=== PATIENT | female | born 1935 | race Caucasian/White ===

== ENCOUNTER 2017-12-02 13:07 | Day surgery (SDC) | payer MEDICARE, MEDICAID ==
[~2017-12-02] VITALS: Ht 152.4 cm; Wt 73.6 kg
[2017-12-02 13:17] VITALS: BP 151/67
[2017-12-02] MEDS ORDERED: MULT-1074 PO (13:28)
[2017-12-02] MEDS ORDERED: SENN1TAB89 PO (13:33)
[2017-12-02] MEDS ORDERED: GABA-530 PO (13:34)
[2017-12-02] MEDS ORDERED: OLOP2.5D OP (13:34)
[2017-12-02] MEDS ORDERED: PROP1DRO7 OP (13:35)
[2017-12-02] MEDS ORDERED: METH-603 PO (13:35)
[2017-12-02] MEDS ORDERED: POLY17PO10 PO (13:36)
[2017-12-02] MEDS ORDERED: METO-395 PO (13:36)
[2017-12-02] MEDS ORDERED: FAMO-128 PO (13:37)
[2017-12-02] MEDS ORDERED: LIDOCAINE TD (13:38)
[2017-12-02] MEDS ORDERED: CITA20TA11 PO (13:39)
[2017-12-02] MEDS ORDERED: LACT10SO PO (13:40)
[2017-12-02] MEDS ORDERED: NA P133E4 RC (13:40)
[2017-12-02] MEDS ORDERED: DULR RC (13:40)
[2017-12-02] MEDS ORDERED: MAGN400O6 PO (13:42)
[2017-12-02] MEDS ORDERED: NITR0.4T SL (13:42)
[2017-12-02] MEDS ORDERED: ACET-2119 PO (13:43)
[2017-12-02] MEDS ORDERED: HYDR-569 PO (13:44)
[2017-12-02] MEDS ORDERED: HYDR25SU32 RC (13:44)
[2017-12-02] MEDS ORDERED: TRIA15CR61 TOP (13:45)
[2017-12-02] MEDS ORDERED: MIDAZolam 5mg/5ml vial ONE (14:32)
[2017-12-02] MEDS ORDERED: fentaNYL/PF 50MCG/1 ML 2ML syringe ONE (14:32)
[2017-12-02 14:48] VITALS: BP 147/67
[2017-12-02 14:58] VITALS: BP 135/73
[2017-12-02 15:08] VITALS: BP 131/70
== END 2017-12-02 15:48 | disposition home or self-care (01) ==
LOC: GI LAB 13:07
PROVIDERS: ATTEND Internal Medicine Gastroenterology
DX: K64.8 Other hemorrhoids (principal); Z88.6 Allergy status to analgesic agent; Z90.89 Acquired absence of other organs; Z90.710 Acquired absence of both cervix and uterus; Z85.828 Personal history of other malignant neoplasm of skin; Z88.5 Allergy status to narcotic agent; Z79.891 Long term (current) use of opiate analgesic; Z79.82 Long term (current) use of aspirin; Z88.8 Allergy status to other drugs, medicaments and biological substances; Z98.890 Other specified postprocedural states
CPT/HCPCS: 45330; G0500; J2250; J3010; J7030; A4620